=== PATIENT | female | born 1965 | race Hispanic/Latino ===

== ENCOUNTER 2019-11-11 20:28 | Emergency (ER) | payer SELFPAY ==
[2019-11-11 21:16] LABS: BASOPHILS % (AUTO) 0.5 % (0.0-5.0); EOSINOPHILS % (AUTO) 1.3 % (0.0-8.0); HEMATOCRIT 32.9 % (36-48); LYMPHOCYTES % (AUTO) 18.2 % (21.0-51.0); MEAN CORPUSCULAR HGB CONC 33.7 g/dL (32.0-36.0); MEAN CORPUSCULAR VOLUME 85.9 fL (79-99); MONOCYTES % (AUTO) 4.9 % (3.0-13.0); NEUTROPHILS % (AUTO) 74.8 % (40.0-77.0); PLATELET COUNT (AUTO) 247 K/uL (130-400); RED BLOOD CELL COUNT(AUTO) 3.83 MIL/uL (4.00-5.50); RED CELL DISTRIBUTION WIDTH 11.9 % (11.0-15.5); WHITE BLOOD COUNT (AUTO) 10.1 K/uL (4.8-10.8)
[2019-11-11] MEDS ORDERED: ONDANSETRON HCL 4 MG/2 ML VIAL ONE (21:21)
[2019-11-11] MEDS ORDERED: SODIUM CHLORIDE 0.9% 1000ML 1,000 ML IV ONE ×2 (21:21→22:18)
[2019-11-11] MEDS ORDERED: ACETAMINOPHEN EXTRA STRENGTH 500 MG TABLET ONE (21:21)
[2019-11-11 21:35] LABS: PARTIAL THROMBOPLASTIN TIME 33.2 SEC (26.3-35.5); PROTHROMBIN TIME 10.5 SEC (9.6-11.6)
[2019-11-11 21:49] LABS: CARBON DIOXIDE 27 mmol/L (21-32); CHLORIDE 92 mmol/L (101-111); CREATININE 1.1 mg/dL (0.5-1.5); GLOMERULAR FILTR. RATE CALC 55 mL/min (>60); GLUCOSE,RANDOM 177 mg/dL (70-105); POTASSIUM 4.3 mmol/L (3.5-5.1); SODIUM SERUM 126 mmol/L (136-145); UREA NITROGEN, BLOOD 19 mg/dL (7-18)
[2019-11-11 22:00] LABS: ALANINE AMINOTRANSFERASE 81 U/L (12-78); ALBUMIN 2.7 g/dL (3.5-5.0); ASPARTATE AMINOTRANSFERASE 54 U/L (10-37); BILIRUBIN,TOTAL 0.3 mg/dL (0.2-1.0); CREATINE KINASE, TOTAL 76 U/L (21-232); MYOGLOBIN 35 ng/mL (10-92); TOTAL PROTEIN, SERUM 7.8 g/dL (6.0-8.3); TROPONIN I < 0.04 ng/mL (0.00-0.06)
[2019-11-11] MEDS ORDERED: IBUPROFEN 200 MG TAB ONE (22:19)
[2019-11-11] MEDS ORDERED: CEFTRIAXONE SODIUM 1 GM ONE (22:19)
[2019-11-11] MEDS ORDERED: IBUPROFEN 400 MG TABLET ONE (22:19)
[2019-11-11 22:44] LABS: APPEARANCE,URINE Cloudy (CLEAR); BILIRUBIN,URINE Negative (NEGATIVE); COLOR,URINE Yellow (YELLOW); GLUCOSE, URINE (UA) 250 mg/dL (NEGATIVE); KETONES,URINE Negative (NEGATIVE); LEUKOCYTE ESTERASE ,URINE Negative (NEGATIVE); NITRATE,URINE Negative (NEGATIVE); OCCULT BLOOD,URINE Negative (NEGATIVE); PROTEIN,URINE POS 1+ mg/dL (NEGATIVE)
[2019-11-11 22:57] LABS: BACTERIA,URINE Few /HPF (None Seen); RBC,URINE 0-1 /HPF (0-1); SQUAMOUS EPITHELIAL CELL,UR 0-2 /HPF (0-2); WBC,URINE 0-1 /HPF (0-1)
== END 2019-11-11 23:40 | disposition home or self-care (01) ==
LOC: EDBD → EDH 20:28
DX: K52.9 Noninfective gastroenteritis and colitis, unspecified (principal); R50.9 Fever, unspecified; E11.9 Type 2 diabetes mellitus without complications; I10 Essential (primary) hypertension; E78.00 Pure hypercholesterolemia, unspecified
CPT/HCPCS: 36415; 71045; 80053; 81001; 82550; 82948; 83605; 83874; 84145; 84484; 85025; 85610; 85730; 87040; 87088; 87804 ×2; 93005; 96361 ×2; 96374; 96375; 99285; J0696; J2405; J7030 ×2

== ENCOUNTER 2019-11-15 08:41 | Inpatient (IN) | payer OTHER ==
[~2019-11-15] VITALS: Ht 152.4 cm; Wt 97.0 kg
[2019-11-15 09:48] LABS: BASOPHILS % (AUTO) 0.2 % (0.0-5.0); EOSINOPHILS % (AUTO) 0.1 % (0.0-8.0); HEMATOCRIT 33.1 % (36-48); LYMPHOCYTES % (AUTO) 4.9 % (21.0-51.0); MEAN CORPUSCULAR HEMOGLOBIN 29.4 pg (27.0-33.0); MEAN CORPUSCULAR HGB CONC 34.1 g/dL (32.0-36.0); MONOCYTES % (AUTO) 1.8 % (3.0-13.0); NEUTROPHILS % (AUTO) 92.5 % (40.0-77.0); PLATELET COUNT (AUTO) 265 K/uL (130-400); RED BLOOD CELL COUNT(AUTO) 3.85 MIL/uL (4.00-5.50); RED CELL DISTRIBUTION WIDTH 12.5 % (11.0-15.5)
[2019-11-15 10:04] LABS: INR 1.03 (0.85-1.15); PARTIAL THROMBOPLASTIN TIME 32.2 SEC (26.3-35.5); PROTHROMBIN TIME 10.8 SEC (9.6-11.6)
[2019-11-15] MEDS ORDERED: ACETAMINOPHEN 650 MG SUPPOSITORY RC ONE ×2 (10:07→12:24)
[2019-11-15] MEDS ORDERED: CEFTRIAXONE SODIUM 2 GM VIAL ONE (10:43)
[2019-11-15] MEDS ORDERED: SODIUM CHLORIDE 0.9% 100 ML IV ONE (10:44)
[2019-11-15 11:01] LABS: APPEARANCE,URINE Clear (CLEAR); BILIRUBIN,URINE Negative (NEGATIVE); COLOR,URINE Yellow (YELLOW); GLUCOSE, URINE (UA) 500 mg/dL (NEGATIVE); KETONES,URINE Negative (NEGATIVE); LEUKOCYTE ESTERASE ,URINE Negative (NEGATIVE); NITRATE,URINE Negative (NEGATIVE); OCCULT BLOOD,URINE Small (NEGATIVE); PROTEIN,URINE POS 2+ mg/dL (NEGATIVE)
[2019-11-15 11:55] LABS: POTASSIUM 3.6 mmol/L (3.5-5.1)
[2019-11-15 11:59] LABS: ALBUMIN 2.3 g/dL (3.5-5.0); BILIRUBIN,TOTAL 0.4 mg/dL (0.2-1.0); TOTAL PROTEIN, SERUM 7.7 g/dL (6.0-8.3)
[2019-11-15] MEDS: SODIUM CHLORIDE 0.9% 1000ML 1,000 ML IV SCH (11:59)
[2019-11-15] MEDS ORDERED: DEXTROSE 50%-WATER 50 ML DISP.SYRIN IV PRN (12:00)
[2019-11-15] MEDS ORDERED: ONDANSETRON HCL 4 MG/2 ML VIAL IV PRN (12:00)
[2019-11-15] MEDS ORDERED: GLUCAGON 1MG KIT 1 MG ML IM PRN (12:00)
[2019-11-15] MEDS ORDERED: LACTULOSE 20 GM/30 ML UDCUP PO PRN (12:00)
[2019-11-15] MEDS ORDERED: CEFTRIAXONE SODIUM 1 GM IV SCH (12:00)
[2019-11-15] MEDS ORDERED: BENZONATATE 100 MG CAPSULE PO PRN (12:00)
[2019-11-15] MEDS ORDERED: HYDRALAZINE HCL 20 MG/ML VIAL IV PRN (12:00)
[2019-11-15 12:24] LABS: BACTERIA,URINE Few /HPF (None Seen)
[2019-11-15] MEDS ORDERED: SODIUM CHLORIDE 0.9% 1000ML 1,000 ML IV ONE (12:24)
[2019-11-15] MEDS ORDERED: IBUPROFEN 600 MG TABLET ONE (12:36)
[2019-11-15 12:49] LABS: AMPHET/METH SCREEN,URINE NEGATIVE (NEGATIVE); BARBITURATE SCREEN, URINE NEGATIVE (NEGATIVE); BENZODIAZEPINES SCREEN,URINE NEGATIVE (NEGATIVE); CANNABINOID SCREEN,URINE NEGATIVE (NEGATIVE); COCAINE SCREEN,URINE NEGATIVE (NEGATIVE); OPIATE SCREEN,URINE NEGATIVE (NEGATIVE); PHENCYCLIDINE SCREEN,URINE NEGATIVE (NEGATIVE)
[2019-11-15] MEDS ORDERED: DEXTROSE 50%-WATER 50 ML DISP.SYRIN IV ONE (14:10)
[2019-11-15 15:00] VITALS: BP 101/57
[2019-11-15] MEDS ORDERED: METF-446 PO (15:04)
[2019-11-15] MEDS ORDERED: LOVA20TA3 PO (15:04)
[2019-11-15] MEDS ORDERED: LISI-613 PO (15:04)
[2019-11-15] MEDS ORDERED: GLYB5TAB8 PO (15:04)
[2019-11-15 16:00] VITALS: BP 93/53
[2019-11-15] MEDS: INSULIN HUMULIN R 100 UNIT/ML 3ML SQ SCH ×2 (16:30→21:00)
[2019-11-15 19:40] VITALS: BP 96/55
[2019-11-15] MEDS: FAMOTIDINE/PF 20 MG/2 ML VIAL IV SCH (21:34)
[2019-11-16 00:25] VITALS: BP 146/73
[2019-11-16] MEDS: ACETAMINOPHEN 325 MG TAB PO PRN ×2 (02:54→11:07)
[2019-11-16 03:45] VITALS: BP 147/75
[2019-11-16] MEDS: SODIUM CHLORIDE 0.9% 1000ML 1,000 ML IV SCH ×3 (05:11→17:59)
[2019-11-16] MEDS: INSULIN HUMULIN R 100 UNIT/ML 3ML SQ SCH ×4 (06:18→21:00)
[2019-11-16 07:30] VITALS: BP 117/65
[2019-11-16 08:51] LABS: CREATININE 1.4 mg/dL (0.5-1.5); POTASSIUM 3.6 mmol/L (3.5-5.1)
[2019-11-16 08:58] LABS: HEMATOCRIT 30.6 % (36-48); MEAN CORPUSCULAR HEMOGLOBIN 28.3 pg (27.0-33.0); MEAN CORPUSCULAR HGB CONC 31.7 g/dL (32.0-36.0); MEAN CORPUSCULAR VOLUME 89.2 fL (79-99); PLATELET COUNT (AUTO) 206 K/uL (130-400); RED BLOOD CELL COUNT(AUTO) 3.43 MIL/uL (4.00-5.50); RED CELL DISTRIBUTION WIDTH 13.1 % (11.0-15.5); WHITE BLOOD COUNT (AUTO) 10.4 K/uL (4.8-10.8)
[2019-11-16] MEDS: FAMOTIDINE/PF 20 MG/2 ML VIAL IV SCH ×2 (09:00→21:38)
[2019-11-16 11:00] VITALS: BP 145/67
[2019-11-16] MEDS: DOXYCYCLINE 100MG+NS 250ML 250 ML IV SCH ×2 (11:30→23:45)
[2019-11-16] MEDS ORDERED: ZOSYN 3.375GM+NS 50ML 50 ML IV ONE (11:42)
[2019-11-16] MEDS: ZOSYN 3.375GM+NS 50ML 50 ML IV SCH ×2 (13:00→21:38)
--- NOTE | 2019-11-16 14:48 | NUR ---
D/C PLAN CM spoke to pt regarding d/c planning. Pt is ind[place] and lives with sister named Viktoria Nuñez. States pt follows up with mobile clinic in [place]. Sister to assist in care as needed. CM provided community resources packet. Plan to home. CM to f/u Addendum: 11/16/19 at 1450 by RAMIREZ IBARRA CM Amended: Links added.
[2019-11-16 16:00] VITALS: BP 123/58
[2019-11-16 19:00] VITALS: BP 117/58
[2019-11-17] VITALS (26 sets, daily range): BP systolic 92–135; BP diastolic 38–66
[2019-11-17] MEDS: SODIUM CHLORIDE 0.9% 1000ML 1,000 ML IV SCH ×2 (04:14→12:41)
[2019-11-17] MEDS: ZOSYN 3.375GM+NS 50ML 50 ML IV SCH ×3 (04:49→20:01)
[2019-11-17] MEDS: INSULIN HUMULIN R 100 UNIT/ML 3ML SQ SCH ×4 (06:16→20:02)
[2019-11-17 06:26] LABS: MEAN CORPUSCULAR HEMOGLOBIN 28.5 pg (27.0-33.0); MEAN CORPUSCULAR HGB CONC 32.4 g/dL (32.0-36.0); MEAN CORPUSCULAR VOLUME 87.9 fL (79-99); PLATELET COUNT (AUTO) 214 K/uL (130-400); RED CELL DISTRIBUTION WIDTH 13.2 % (11.0-15.5); WHITE BLOOD COUNT (AUTO) 10.1 K/uL (4.8-10.8)
[2019-11-17 06:53] LABS: ALBUMIN 1.7 g/dL (3.5-5.0); BILIRUBIN,TOTAL 0.4 mg/dL (0.2-1.0); CREATININE 1.8 mg/dL (0.5-1.5); POTASSIUM 3.2 mmol/L (3.5-5.1); TOTAL PROTEIN, SERUM 6.2 g/dL (6.0-8.3)
[2019-11-17] MEDS ORDERED: NS-20 MEQ KCL 1000ML 1,000 ML IV SCH ×2 (07:45→11:45)
[2019-11-17 07:55] LABS: BAND NEUTROPHILS % (MANUAL) 6 % (0-2); LYMPHOCYTES % (MANUAL) 9 % (22-44); MAN.DIFF COMMENT-IMPRESSION MANUAL DIFFERENTIAL; MONOCYTES % (MANUAL) 5 % (2-9); PLATELET MORPHOLOGY COMMENT ADEQUATE; SEGMENTED NEUTROPHILS % 80 % (40-70)
--- NOTE | 2019-11-17 09:08 | NUR ---
CALLED DR SAMPSON CELLPHONE. KAMRYN, ANSWER THE PHONE, INFORMED KAMRYN THAT DR DRISCOLL IS PENDING TO COME AND SEE THE PATIENT TO PROVIDE CARDIAC CLEARANCE. DR SAMPSON IS PLANNING ON DOING SX TODAY. KAMRYN STATED SHE WILL PASS THIS INFORMATION TO DR SAMPSON.
[2019-11-17] MEDS: FAMOTIDINE/PF 20 MG/2 ML VIAL IV SCH ×2 (09:58→20:01)
--- NOTE | 2019-11-17 12:08 | NUR ---
DR SAMPSON HERE TO VISIT WITH PATIENT.POC DISCUSSED. DR SAMPSON DISCUSSED CARDIAC CLEARANCE WITH VENKATA CHRISTIE. NO CARDIAC CLEARANCE NEEDED AT THIS POINT. ORDER CANCELLED.
[2019-11-17] MEDS: DOXYCYCLINE 100MG+NS 250ML 250 ML IV SCH (12:16)
[2019-11-17] MEDS ORDERED: SUCCINYLCHOLINE 200MG/10ML SYR ONE (12:52)
[2019-11-17] MEDS ORDERED: LIDOCAINE PF 2% 5ML ABBOJECT ONE (12:52)
[2019-11-17] MEDS ORDERED: ROCURONIUM 10MG/1ML SYR 10 MG/ML ML ONE (12:53)
[2019-11-17] MEDS ORDERED: PROPOFOL 10 MG/ML 20ML VIAL IV ONE (12:53)
[2019-11-17] MEDS ORDERED: FENTANYL CITRATE PF 50 MCG/1 ML 2ML VIAL ONE (12:53)
[2019-11-17] MEDS ORDERED: BUPIVACAINE/PF 0.5% 30ML VIAL ONE (13:01)
[2019-11-17] MEDS ORDERED: SODIUM CHLORIDE 0.9% 10 ML VIAL ONE (13:41)
[2019-11-17] MEDS ORDERED: PHENYLEPHRINE HCL 10 MG/ML 1ML VIAL IV ONE (13:41)
[2019-11-17] MEDS ORDERED: EPHEDRINE SULFATE 50 MG/ML AMPULE ONE (13:42)
[2019-11-17] MEDS ORDERED: GLYCOPYRROLATE 1 MG/5 ML SYRINGE ONE (14:15)
[2019-11-17] MEDS ORDERED: ONDANSETRON HCL 4 MG/2 ML VIAL ONE (14:15)
[2019-11-17] MEDS ORDERED: NEOSTIGMINE 5MG/5ML SYR IV ONE (14:16)
[2019-11-17] MEDS ORDERED: MEPERIDINE-PF 25 MG/ML SYG ONE (14:58)
[2019-11-17] MEDS ORDERED: IPRATROPIUM/ALBUTEROL SULFATE 3 ML SOLUTION IH ONE (15:03)
[2019-11-17 16:13] LABS: ABG BASE EXCESS -8.4 mmol/L (-2.0-3.0); ABG HCO3 16.3 mmol/L (21.0-28.0); ABG PCO2 32 mmHg (32-45)
[2019-11-17] MEDS ORDERED: SODIUM CHLORIDE 0.9% 500ML 500 ML IV SCH (18:45)
--- NOTE | 2019-11-17 19:10 | NUR ---
ABGs Dr FRIEDMAN PENDING TO SEE PT. PICTURE OF ABG RESULTS SEND. WAITING ON REPLY.
--- NOTE | 2019-11-17 20:17 | NUR ---
PATIENT RECEIVED IN BED, AAOX3, POST LAP SEGUN TODAY BY DR. SAMPSON. ABD DRESSINGS x4 NOTED D/I. PT WITH C/O ABD BLOATING, I INSTRUCTED IT IS EXPECTED AFTER A LAP SEGUN. ENCOURAGED NOT TO DRINK WITH A STRAW TO PREVENT MORE BLOATING. DR. SAMPSON WAS IN TO SEE PATIENT, HE ORDERED FOR A 500 ML NS BOLUS, ORDER CARRIED OUT. WE ARE AWAITING CONSULT WITH DR. FRIEDMAN FOR EVALUATION. POC DISCUSSED WITH PATIENT AND SISTER. F/C NOTED WITH CLEAR YELLOW URINE, DRAINING TO GRAVITY. TELE WITH SINUS 94. WILL CONT TO MONITOR CLOSELY. Addendum: 11/17/19 at 2022 by KEANU DRISCOLL RN RN Amended: Links added.
[2019-11-17 21:46] LABS: APPEARANCE,URINE Cloudy (CLEAR); BILIRUBIN,URINE Negative (NEGATIVE); COLOR,URINE Yellow (YELLOW); GLUCOSE, URINE (UA) 250 mg/dL (NEGATIVE); KETONES,URINE Negative (NEGATIVE); LEUKOCYTE ESTERASE ,URINE Negative (NEGATIVE); NITRATE,URINE Negative (NEGATIVE); OCCULT BLOOD,URINE Moderate (NEGATIVE); PROTEIN,URINE POS 1+ mg/dL (NEGATIVE)
[2019-11-17 21:48] LABS: SODIUM,URINE RANDOM 47 mmol/l (40-220)
[2019-11-17 22:06] LABS: BACTERIA,URINE Few /HPF (None Seen); MUCUS,URINE Few LPF (None Seen)
[2019-11-17] MEDS ORDERED: SIMETHICONE 80 MG TAB.CHEW ONE (22:51)
[2019-11-17] MEDS ORDERED: MAGNESIUM 2GM PREMIX 50ML 50 ML IV ONE (22:52)
[2019-11-17] MEDS ORDERED: MAGNESIUM 2GM PREMIX 50ML 50 ML IV SCH (23:00)
[2019-11-17] MEDS ORDERED: SIMETHICONE 80 MG TAB.CHEW PO ONE (23:00)
--- NOTE | 2019-11-17 23:08 | NUR ---
SPOKE WITH KEISHA CHRISTIE, UPDATED ON STATUS. OBTAINED ORDER FOR MG PROTOCOL AND SIMETHICONE D/T PATIENT WITH C/O BLOATING PAIN. WILL CONT TO MONITOR PATIENT CLOSELY.
[2019-11-18] VITALS (7 sets, daily range): BP systolic 98–130; BP diastolic 47–75
[2019-11-18] MEDS: DOXYCYCLINE 100MG+NS 250ML 250 ML IV SCH ×2 (00:22→12:36)
[2019-11-18] MEDS: SODIUM CHLORIDE 0.9% 1000ML 1,000 ML IV SCH ×3 (00:36→21:15)
[2019-11-18] MEDS: ZOSYN 3.375GM+NS 50ML 50 ML IV SCH ×3 (04:20→21:15)
--- NOTE | 2019-11-18 04:37 | NUR ---
PATIENT STATES SHE FEELS TIRED FROM BEING IN BED. 2 PERSON ASSIST TO SIT AT BEDSIDE. PT DID EXPERIENCE DIZZINESS WITH INITIAL MOVEMENT. WE WAITED 10 MINUTES, DIZZINESS SUBSIDED AND WE ASSISTED HER TO BEDSIDE CHAIR. SISTER IS AT BEDSIDE.
[2019-11-18 05:25] LABS: BASOPHILS % (AUTO) 0.2 % (0.0-5.0); EOSINOPHILS % (AUTO) 0.1 % (0.0-8.0); HEMATOCRIT 25.2 % (36-48); LYMPHOCYTES % (AUTO) 12.5 % (21.0-51.0); MEAN CORPUSCULAR HGB CONC 32.5 g/dL (32.0-36.0); MONOCYTES % (AUTO) 2.2 % (3.0-13.0); NEUTROPHILS % (AUTO) 84.3 % (40.0-77.0); PLATELET COUNT (AUTO) 189 K/uL (130-400); RED BLOOD CELL COUNT(AUTO) 2.83 MIL/uL (4.00-5.50); RED CELL DISTRIBUTION WIDTH 13.9 % (11.0-15.5)
[2019-11-18 05:46] LABS: ALBUMIN 1.7 g/dL (3.5-5.0); BILIRUBIN,TOTAL 0.3 mg/dL (0.2-1.0); CREATININE 1.5 mg/dL (0.5-1.5); MAGNESIUM 2.3 mg/dL (1.80-2.40); POTASSIUM 3.4 mmol/L (3.5-5.1)
[2019-11-18] MEDS: INSULIN HUMULIN R 100 UNIT/ML 3ML SQ SCH ×4 (05:50→21:16)
[2019-11-18] MEDS: LISINOPRIL 20 MG TABLET PO SCH (08:01)
[2019-11-18] MEDS: GLYBURIDE 5 MG TABLET PO SCH (09:14)
[2019-11-18] MEDS: FAMOTIDINE/PF 20 MG/2 ML VIAL IV SCH ×2 (09:14→21:15)
--- NOTE | 2019-11-18 10:16 | NUR ---
PORTER CRUM VISITED WITH PATIENT. POC DISCUSSED. FROM SX STAND POINT PATIENT CAN GO HOME. RX TYLENOL #3 IN THE CHART.
[2019-11-18] MEDS ORDERED: POTASSIUM CHLORIDE 10MEQ/100ML 100 ML IV PRN (12:45)
[2019-11-18] MEDS ORDERED: POTASSIUM CHLORIDE 10% ELIXIR 20 MEQ/15 ML UDCUP PO PRN (12:45)
[2019-11-18] MEDS ORDERED: LIDOCAINE HCL-MPF 1% 2ML VIAL IV PRN (12:45)
[2019-11-18] MEDS ORDERED: POTASSIUM CHLORIDE 20 MEQ ERTAB PO PRN (12:45)
[2019-11-18] MEDS ORDERED: SIMVASTATIN 20 MG TABLET PO SCH (21:00)
[2019-11-19] MEDS: DOXYCYCLINE 100MG+NS 250ML 250 ML IV SCH ×2 (00:35→12:19)
[2019-11-19 03:00] VITALS: BP 118/59
[2019-11-19] MEDS: ZOSYN 3.375GM+NS 50ML 50 ML IV SCH ×2 (05:37→13:12)
[2019-11-19] MEDS: SODIUM CHLORIDE 0.9% 1000ML 1,000 ML IV SCH (05:59)
[2019-11-19] MEDS: INSULIN HUMULIN R 100 UNIT/ML 3ML SQ SCH ×3 (06:04→16:37)
[2019-11-19 06:33] LABS: ALBUMIN 1.6 g/dL (3.5-5.0); BILIRUBIN,TOTAL 0.3 mg/dL (0.2-1.0); CREATININE 1.4 mg/dL (0.5-1.5); POTASSIUM 3.3 mmol/L (3.5-5.1); TOTAL PROTEIN, SERUM 5.8 g/dL (6.0-8.3)
[2019-11-19 07:12] LABS: BASOPHILS % (AUTO) 0.3 % (0.0-5.0); EOSINOPHILS % (AUTO) 0.6 % (0.0-8.0); HEMATOCRIT 25.7 % (36-48); LYMPHOCYTES % (AUTO) 15.2 % (21.0-51.0); MEAN CORPUSCULAR HEMOGLOBIN 28.7 pg (27.0-33.0); MEAN CORPUSCULAR HGB CONC 31.9 g/dL (32.0-36.0); MEAN CORPUSCULAR VOLUME 89.9 fL (79-99); MONOCYTES % (AUTO) 2.1 % (3.0-13.0); NEUTROPHILS % (AUTO) 81.2 % (40.0-77.0); PLATELET COUNT (AUTO) 220 K/uL (130-400); RED BLOOD CELL COUNT(AUTO) 2.86 MIL/uL (4.00-5.50); RED CELL DISTRIBUTION WIDTH 14.3 % (11.0-15.5)
[2019-11-19 08:00] VITALS: BP 109/52
[2019-11-19] MEDS: METFORMIN HCL 500 MG TABLET PO SCH ×2 (08:43→16:32)
[2019-11-19] MEDS: GLYBURIDE 5 MG TABLET PO SCH (08:44)
[2019-11-19] MEDS: FAMOTIDINE/PF 20 MG/2 ML VIAL IV SCH (08:44)
[2019-11-19] MEDS: LISINOPRIL 20 MG TABLET PO SCH (08:45)
[2019-11-19] MEDS ORDERED: IPRATROPIUM/ALBUTEROL SULFATE 3 ML SOLUTION IH SCH ×2 (09:15→12:00)
[2019-11-19] MEDS ORDERED: POTASSIUM CHLORIDE 20 MEQ ERTAB PO SCH ×2 (09:30)
[2019-11-19 11:54] VITALS: BP 100/43
--- NOTE | 2019-11-19 15:00 | NUR ---
FAMILY NOTIFIED OF DISCHARGE. SISTER AT BEDSIDE AND REPORTED THAT THEIR WILL NOT BE ANY TRANSPORTATION AVAILABLE TO PICK PATIENT UP TILL AFTER 2100.
[2019-11-19] MEDS ORDERED: DOXY100T2 PO (15:06)
[2019-11-19 16:00] VITALS: BP 100/43
[2019-11-19] MEDS ORDERED: BUDESONIDE 0.5 MG/2 ML INH IH SCH (18:00)
== END 2019-11-19 18:37 | disposition home or self-care (01) | DRG 854 ==
LOC: EDH 08:41 → EDBD 08:41 → EDHIP 08:42 → 4DH 14:53
PROVIDERS: ADMIT Hospitalist; ATTEND Hospitalist
PROC: 0FT44ZZ Resection of Gallbladder, Percutaneous Endoscopic Approach (ICD-10-PCS; principal; 2019-11-17 13:22)
DX: A41.9 Sepsis, unspecified organism (principal); N39.0 Urinary tract infection, site not specified; N17.9 Acute kidney failure, unspecified; Z68.41 Body mass index [BMI] 40.0-44.9, adult; K80.00 Calculus of gallbladder with acute cholecystitis without obstruction; E11.649 Type 2 diabetes mellitus with hypoglycemia without coma; K82.8 Other specified diseases of gallbladder; E66.9 Obesity, unspecified; E78.00 Pure hypercholesterolemia, unspecified; E78.5 Hyperlipidemia, unspecified; I10 Essential (primary) hypertension; D64.9 Anemia, unspecified; E87.6 Hypokalemia
CPT/HCPCS: 36415; 36600; 71045; 76705; 78226; 80048; 80053; 80305; 81001; 81025; 82140; 82550; 82803; 82948; 83605; 83735; 83935; 84145; 84300; 84484; 85025; 85027; 85610; 85730; 87040; 87088; 93005; 94640; 94664; A9537; G0378; J0330; J0696; J1815; J2001; J2175; J2370; J2405; J2543; J2704; J2710; J3010; J3475; J3480; J3490; J7030; J7070

== ENCOUNTER 2019-12-01 08:23 | Emergency (ER) | payer OTHER ==
[~2019-12-01 08:23] MED LIST: DOXY100T2 PO; GLYB5TAB8 PO; LISI-613 PO; LOVA20TA3 PO; METF-446 PO
== END 2019-12-01 09:16 | disposition home or self-care (01) ==
LOC: EDBD 08:23 → EDH 08:23
DX: Z48.01 Encounter for change or removal of surgical wound dressing (principal); E11.9 Type 2 diabetes mellitus without complications; I10 Essential (primary) hypertension; E78.00 Pure hypercholesterolemia, unspecified; Z90.49 Acquired absence of other specified parts of digestive tract
CPT/HCPCS: 99281